=== PATIENT | male | born 1970 | race African-American/Black ===

== ENCOUNTER 2018-07-17 12:32 | Outpatient (CLI) | payer BC ==
--- NOTE | 2018-07-17 13:21 | RAD ---
TWO VIEW CHEST SERIES: INDICATIONS: Short of breath. COMPARISON: No prior comparison. FINDINGS: There is marked enlargement of the cardiac silhouette and pulmonary vasculature with interstitial pro minence. Small bilateral pleural effusions are present. IMPRESSION: Evidence of congestive heart failure. Correlate clinically. Imaging followup may be obtained to confirm resolution. POS: [facility]
== END 2018-07-17 12:33 | disposition home or self-care (01) ==
LOC: RAD 12:32
PROVIDERS: ATTEND Internal Medicine Nephrology
DX: R06.02 Shortness of breath (principal); I50.9 Heart failure, unspecified
CPT/HCPCS: 71046

== ENCOUNTER 2018-09-13 07:13 | Outpatient (CLI) | payer BC ==
--- NOTE | 2018-09-13 09:41 | ULT ---
RENAL SONOGRAM WITH DUPLEX EVALUATION: HISTORY: Hypertension. Renal failure. FINDINGS: The right kidney is 10.4 cm. No hydronephrosis. A 1.2 cm cyst is present along the lateral cortex. The left kidney is 10.3 cm with 2 cysts, measuring up to 1.8 cm greatest diameter. No hydronephrosis . The urinary bladder is incompletely distended without focal abnormality. Good color and spectral Doppler flow within the abdominal aorta and each renal artery. No abnormally elevated peak systolic velocities. Resistive index associated with the arcuate arteries of each kidney is 0.7. IMPRESSION: 1. No evidence of urinary tract obstruction. 2. Small renal cysts. 3. No abnormally elevated renal artery velocities. POS: [facility]
== END 2018-09-13 07:14 | disposition home or self-care (01) ==
LOC: SCSULT 07:13
PROVIDERS: ATTEND Internal Medicine Cardiovascular Disease
DX: I10 Essential (primary) hypertension (principal); N28.1 Cyst of kidney, acquired
CPT/HCPCS: 76700; 76770